=== PATIENT | male | born 1970 | race African-American/Black ===

== ENCOUNTER 2017-10-13 06:11 | Emergency (ER) | payer MEDICAID ==
[~2017-10-13] VITALS: Ht 198.1 cm; Wt 103.0 kg
[2017-10-13 06:21] VITALS: BP 151/99
== END 2017-10-13 11:59 | disposition left against medical advice (07) ==
LOC: ER 06:11
DX: M54.9 Dorsalgia, unspecified (principal); I10 Essential (primary) hypertension; E66.9 Obesity, unspecified; F17.200 Nicotine dependence, unspecified, uncomplicated; Z68.26 Body mass index [BMI] 26.0-26.9, adult
CPT/HCPCS: 99281